=== PATIENT | female | born 1985 | race Caucasian/White ===

== ENCOUNTER → 2025-04-04 | Outpatient (CLI) | payer BC, SELFPAY ==
[2025-04-01 15:30] LABS: HCG Qualitative,Urine Negative
--- NOTE | 2025-04-04 13:00 | XR_ITS ---
Examination: MRI of brain without intravenous contrast. MRI brain with intravenous contrast. Date and time of exam:April 04, 2025 1412 hours INDICATIONS: Elevated prolactin on laboratory examination this month Technique: Multiple axial and sagittal images of the brain to been obtained. Siemens high-resolution 1.52 Rosaura short bore scanner utilized. Sagittal sections, T1 weighted images, TR 500, TE 14, are performed. Axial sections proton-density and T2-weighted images have been obtained. Inversion recovery axial images, TR 9260, TE 111, TR 2500. Diffusion weighted images, axial sections, TR 4800, TE 128, B value 1000. Axial sections, ADC map, TR 4800, TE 128. Axial and coronal images were also obtained post 20 cc gadolinium administered intravenously. Findings:: Enlargement of the sella turcica is not present. The optic chiasm and infundibular stalk are not remarkable. There is no localized enlargement of the medulla or daren. Fourth ventricle and cerebellar tonsils appear normal in position. No subacute area of hemorrhage density is seen. Fourth ventricle is midline. Mass in the cerebellopontine angle region is not evident. 7th and 8th nerve complexes exhibit symmetry Globes are symmetrical Orbital musculature including medial lateral rectus muscles do not exhibit abnormality Increased white matter signal is noted seen Effacement of the cortical sulcal markings is not identified. Mass effect upon the ventricular system is not identified. Diffusion-weighted images demonstrate no focus of restricted diffusion Contrast images demonstrate no pituitary microadenoma or macroadenoma Impression: Negative for pituitary microadenoma or macroadenoma
== END | disposition home or self-care (01) ==
LOC: SMRI 12:31
PROVIDERS: PCP Physician Assistant Medical
DX: R79.89 Other specified abnormal findings of blood chemistry (principal); Z32.00 Encounter for pregnancy test, result unknown
CPT/HCPCS: 70553; 81025; A9577